=== PATIENT | female | born 1985 | race African-American/Black ===

== ENCOUNTER 2020-12-02 18:08 | Emergency (ER) | payer MEDICAID ==
[~2020-12-02] VITALS: Ht 170.2 cm; Wt 86.0 kg
[2020-12-02] MEDS ORDERED: IBUPROFEN 600MG TABLET PO STA (18:35)
[2020-12-02] MEDS ORDERED: HYDROCODONE/ACETAMINOPHEN 5/325MG TABLET PO STA (18:35)
[2020-12-02 19:19] LABS: BASOPHILS % 0.3 % (0.0-2.0); EOSINOPHILS % 3.2 % (0.0-5.0); HEMATOCRIT. 40.3 % (36.0-48.0); HEMOGLOBIN. 13.9 g/dL (12.0-16.0); LYMPHOCYTES % 46.2 % (20.0-50.0); MEAN CORPUSCULAR HEMOGLOBIN 27.6 pg (28.0-32.0); MEAN CORPUSCULAR VOLUME 80.1 fL (81.0-99.0); MEAN PLATELET VOLUME 9.3 fl (7.4-10.4); MONOCYTES % 6.7 % (2.0-8.0); NEUTROPHILS % 43.6 % (40.0-76.0); PLATELET 263 x1000/uL (130-400); RED BLOOD CELL COUNT 5.03 mill/uL (4.2-5.4); RED CELL DISTRIBUTION WIDTH 15.3 % (11.6-14.6)
[2020-12-02 19:23] LABS: CHLORIDE 107 mEq/L (98-107)
[2020-12-02 19:28] LABS: INR 1.1; PROTHROMBIN TIME 11.7 sec (9.6-11.0)
[2020-12-02 20:46] LABS: CLARITY URINE CLEAR (CLEAR); COLOR URINE YELLOW (YELLOW); KETONES URINE NEGATIVE (NEGATIVE); LEUKOCYTE ESTERASE URINE TRACE (NEGATIVE); NITRITE URINE NEGATIVE (NEGATIVE); OCCULT BLOOD URINE NEGATIVE (NEGATIVE); PROTEIN URINE NEGATIVE (NEGATIVE); SPECIFIC GRAVITY URINE 1.009 (1.005-1.030)
[2020-12-02] MEDS ORDERED: DEXAMETHASONE 4MG/ML 1ML VIAL IV ONE (22:30)
[2020-12-03] MEDS ORDERED: HYDROMORPHONE HCL/PF 2MG/ML CPJ IV ONE ×2 (01:45→22:30)
[2020-12-03] MEDS ORDERED: ONDANSETRON HCL 4MG/2ML INJ IV ONE (08:30)
[2020-12-03] MEDS ORDERED: MORPHINE SULFATE 4 MG/ML CPJ (NOT FOR IM USE) IV ONE (08:30)
[2020-12-03] MEDS ORDERED: MORPHINE SULFATE 2 MG/ML CPJ (NOT FOR IM USE) IV ONE (08:45)
[2020-12-03] MEDS ORDERED: MORPHINE SULFATE 10 MG/ML CPJ IV ONE (16:15)
[2020-12-03] MEDS ORDERED: DEXAMETHASONE 4MG/ML 1ML VIAL IV SCH (18:00)
[2020-12-03] MEDS ORDERED: DEXT 5%/0.9% NACL 1,000 ML IV ONE (18:45)
[2020-12-04 00:11] VITALS: BP 117/76
== END 2020-12-04 01:49 | disposition short-term general hospital (02) ==
LOC: ER 18:08
DX: G83.4 Cauda equina syndrome (principal)
CPT/HCPCS: 36415; 72148; 80053; 81003; 85025; 85610; 96374; 96375; 96376; 99291; J1100; J1170; J2270; J2405

== ENCOUNTER 2024-04-15 04:47 | Emergency (ER) | payer MEDICAID ==
[~2024-04-15] VITALS: Ht 167.6 cm; Wt 90.0 kg
[2024-04-15 04:51] VITALS: O2SAT 100
[2024-04-15] MEDS: SODIUM CHLORIDE 0.9% 1,000 ML IV ONE (05:46)
[2024-04-15 05:57] VITALS: TEMP 37
[2024-04-15 06:07] LABS: BASOPHILS % 0.7 % (0.0-2.0); EOSINOPHILS % 3.8 % (0.0-5.0); HEMATOCRIT. 40.1 % (36.0-48.0); HEMOGLOBIN. 13.5 g/dL (12.0-16.0); LYMPHOCYTES % 36.3 % (20.0-50.0); MEAN CORPUSCULAR HEMOGLOBIN 27.3 pg (28.0-32.0); MEAN CORPUSCULAR HGB CONC 33.7 g/dL (31.0-37.0); MEAN PLATELET VOLUME 9.2 fl (7.4-10.4); MONOCYTES % 3.4 % (2.0-8.0); NEUTROPHILS % 55.8 % (40.0-76.0); PLATELET 266 x1000/uL (130-400); RED BLOOD CELL COUNT 4.96 mill/uL (4.2-5.4); RED CELL DISTRIBUTION WIDTH 15.8 % (11.6-14.6); WHITE BLOOD COUNT 7.5 x1000/uL (4.5-11.0)
[2024-04-15 06:15] LABS: CHLORIDE 107 mEq/L (98-107); POTASSIUM 3.9 mEq/L (3.5-5.1); SODIUM 143 mEq/L (136-145)
[2024-04-15 06:16] LABS: CALCIUM 9.6 mg/dL (8.7-10.4); CARBON DIOXIDE 26 mEq/L (21-32)
[2024-04-15 06:21] LABS: GLUCOSE 101 mg/dL (70-105); UREA NITROGEN BLOOD 11 mg/dL (9-23)
[2024-04-15 06:35] LABS: PROTHROMBIN TIME 11.4 sec (9.6-11.0)
[2024-04-15 06:37] LABS: TROPONIN I HIGH SENSITIVITY < 4 ng/L (3.0-34)
[2024-04-15 07:17] LABS: BLOOD PARASITE NONE SEEN (NONE SEEN)
[2024-04-15 07:35] LABS: CLARITY URINE CLEAR (CLEAR); COLOR URINE YELLOW (YELLOW); GLUCOSE URINE NEGATIVE (NEGATIVE); KETONES URINE NEGATIVE (NEGATIVE); LEUKOCYTE ESTERASE URINE NEGATIVE (NEGATIVE); NITRITE URINE NEGATIVE (NEGATIVE); OCCULT BLOOD URINE NEGATIVE (NEGATIVE); PH URINE 8.5 (4.5-8.0); PROTEIN URINE NEGATIVE (NEGATIVE); SPECIFIC GRAVITY URINE 1.008 (1.005-1.030); UROBILINOGEN URINE 0.2 E.U./dL (0.2-1.0)
[2024-04-15 13:29] VITALS: BP 110/69; PULSE 70; RESP 18; O2SAT 98
== END 2024-04-15 15:34 | disposition left against medical advice (07) ==
LOC: ER 04:47 → EDBEDREQ 08:00 → EDBEDREQTM 08:00 → ER 15:34
DX: R27.0 Ataxia, unspecified (principal); E78.00 Pure hypercholesterolemia, unspecified; Z20.822 Contact with and (suspected) exposure to COVID-19
CPT/HCPCS: 99285; 96360; 70450; 71045; 87426; 80048; 81003; 85025; 85610; 86850; 86900; 86901; 87207; 84484; 36415; 93005; J7030